=== PATIENT | male | born 1985 | race Caucasian/White ===

== ENCOUNTER 2024-04-10 09:45 | Emergency (ER) | payer OTHER, SELFPAY ==
--- NOTE | ~2024-04-10 | CT_ITS ---
CLINICAL HISTORY: ongoing cough since november CT chest with contrast Comparison: CR - XR CHEST 2V - 04/10/24 10:34 EST Findings: The heart is normal size. The visualized thyroid and mediastinum are unremarkable. There is bilateral gynecomastia. Soft tissues are otherwise unremarkable. There is no consolidation or pleural effusion. There are scattered linear opacities within the bilateral lower lungs. The upper abdomen is unremarkable. The bones are intact. IMPRESSION: Scattered linear opacities within the bilateral lower lungs, compatible with atelectasis. This document has been electronically signed by: Shadia Suazo MD on 04/10/2024 14:20:27
--- NOTE | ~2024-04-10 | XR_ITS ---
CLINICAL HISTORY: chest pain Chest radiographs, 2 views Comparison: None Findings: The cardiomediastinal silhouette is not enlarged. Pulmonary vascularity is unremarkable. Minimal bibasilar airspace opacities and slight blunting of the costophrenic angles. Lungs are otherwise clear. No pneumothorax. IMPRESSION: Minimal bibasilar airspace disease and possible trace bilateral pleural effusions. This document has been electronically signed by: Rojelio Soto DO on 04/10/2024 10:47:52
--- NOTE | 2024-04-10 09:47 | ECG_ITS ---
Test Reason : CHEST PAIN Blood Pressure : */* mmHG Vent. Rate : 72 BPM Atrial Rate : 72 BPM P-R Int : 166 ms QRS Dur : 106 ms QT Int : 376 ms P-R-T Axes : 47 38 -4 degrees QTcB Int : 411 ms Normal sinus rhythm Minimal voltage criteria for LVH, may be normal variant ( [place] product ) Borderline ECG No previous ECGs available Referred By: Generic ED Physician Electronically Signed By: CHRYSTAL GATICA
--- NOTE | 2024-04-10 09:56 | ED_ITS ---
HPI - General Adult General Chief complaint: Chest Pain Stated complaint: Chest Pain Time Seen by Provider: 04/10/24 09:54 Source: patient, RN notes reviewed and old records reviewed Mode of arrival: ambulatory Limitations: no limitations History of Present Illness ED Provider: William VASQUEZ narrative: Patient is a 38-year-old male presenting to the emergency department with complaint of right sided chest pain since yesterday. States pain began suddenly while blowing his nose. Pain is to the right of his sternum. Reports intermittent URI symptoms since November of 2023. Has been treated with several courses of antibiotics. Has had some improvement in between illnesses. Denies recent fevers. Pain worse with blowing nose, coughing, movement. MD complaint: chest pain Onset (ago): day(s) Location: chest Radiation: non-radiation Severity: severe Related Data Previous Rx's ?Medication ?Instructions ?Recorded benzonatate 100 mg capsule 100 mg PO TID PRN cough #20 caps 04/10/24 fluticasone furoate 50 1 inh inhalation DAILY #30 ea 04/10/24 mcg/actuation blister powder for inhalation lidocaine 5 % topical patch 1 patch topical DAILY #15 ea 04/10/24 naproxen 500 mg tablet 500 mg PO BID #30 tabs 04/10/24 prednisone 20 mg tablet See Rx Instructions .Route 04/10/24 .COMPLEX #18 tabs Allergies Allergy/AdvReac Type Severity Reaction Status Date / Time No Known Allergies Allergy Verified 04/10/24 10:03 Review of Systems 2 Review of Systems: as per HPI Yes all other systems are reviewed and are negative Constitutional: Constitutional: Reports as per HPI PMF Social History Social History Smoked in Last 30 Days: Yes Use of substances other than those prescribed or required for medical reasons: No Advance Directives: No Advance Directives Information Provided: Yes Physical Exam ED Vital Signs: Vital Signs - 24 hr 04/10/24 09:58 04/10/24 12:06 04/10/24 15:07 Temperature 98.5 F 98.7 F 98 F Pulse Rate 80 70 67 Respiratory Rate 18 16 19 Blood Pressure 144/85 H 144/65 H 141/61 H Pulse Oximetry 97 96 97 Oxygen Delivery Method Room Air Room Air Room Air 04/10/24 15:34 Temperature 98 F Pulse Rate 67 Respiratory Rate 19 Blood Pressure 141/61 H Pulse Oximetry 97 Oxygen Delivery Method Room Air BMI result Body Mass Index 32.1 Vital signs have been reviewed and appear to be correct. Blood pressure normal. Heart rate normal. Respiratory rate normal. Temperature normal. Oxygen saturation normal. Const General: cooperative, healthy appearing and no acute distress Orientation/consciousness: oriented to person, oriented to place, oriented to time and patient oriented x3 Limitations: no limitations HENMT Head: Yes normocephalic and Yes atraumatic Ears: external ears normal General nose exam: Normal external nose present Face and sinus: Yes face symmetric Mouth: oropharynx normal and moist mucous membranes Throat: Yes posterior oropharynx normal, Yes tonsils normal, Yes uvula midline and No uvular edema Eyes Pupils: Equal, round and reactive pupils present Neck Neck: Yes normal visual inspection and Yes supple Chest Chest palpation & inspection: normal inspection of the chest and no tenderness Resp Effort & Inspection: normal respiratory effort and able to speak in complete sentences Auscultation: clear to auscultation bilaterally Cardio Rate: regular rate Rhythm: regular rhythm Heart sounds: S1 normal heart sound present and S2 normal heart sound present GI Palpation (GI): Soft to palpation and nontender Auscultation: normoactive bowel sounds General: Yes no CVA tenderness Back/Spine/Pelvis Back: no CVA tenderness Skin General skin exam: elasticity normal and turgor normal Neuro General: oriented to person, oriented to place, oriented to time, patient oriented x3, moves all extremities, no focal motor deficits and CN's II-XI intact bilaterally Cranial nerves: Yes Equal, round and reactive pupils present Cognition (Neuro): normal cognition Extrem General: Yes full ROM, Yes no pedal edema and Yes no calf tenderness Psych Mental Status: mental status grossly normal Affect: normal affect Thought process: Normal thought process present Medications Administered Discontinued Medications Generic Name Dose Route Start Last Admin Trade Name Freq PRN Reason Stop Dose Admin Albuterol Sulfate 2 puff 04/10/24 14:48 04/10/24 15:29 Albuterol Sulfate 90 Mcg 8 Gm Inhaler INHALE 04/10/24 14:49 2 puff ONCE ONE Administration Guaifenesin 5 ml 04/10/24 13:05 04/10/24 13:18 Guaifenesin 100 Mg/5 Ml 5 Ml Liquid PO 04/10/24 13:06 5 ml ONCE ONE Administration Iohexol 65 ml 04/10/24 13:40 04/10/24 13:41 Iohexol 350 Mg/Ml 100 Ml Infus..Btl IV 04/10/24 13:41 65 ml ONCE ONE Administration Ketorolac Tromethamine 15 mg 04/10/24 13:05 04/10/24 13:44 Ketorolac Tromethamine 15 Mg/Ml Vial IVPUSH 04/10/24 13:06 15 mg ONCE ONE Administration Morphine Sulfate 2 mg 04/10/24 14:11 04/10/24 14:24 Morphine Sulfate 2 Mg/Ml Cartridge IVPUSH 04/10/24 14:12 2 mg ONCE ONE Administration Protocol Medical Decision Making Medical Decision Making [facility] Narrative: Patient is a 38-year-old male presenting to the emergency department with complaint of right sided chest pain since yesterday. On exam patient is awake, A+Ox3, VS WNL, afebrile, normal neurological exam without focal deficits, physical exam findings as above. Given reported symptoms and physical exam findings, initial differential includes but is not limited to ACS, bronchitis, pneumonia, costochondritis, musculoskeletal pain. Labs unremarkable negative troponin. Strep and viral swabs negative. EKG shows normal sinus rhythm. X- ray chest notable for minimal bibasilar opacities. CT chest shows scattered linear opacities within bilat lower lungs. My interpretation is in agreement with the radiologist's interpretation. Case discussed with attending MD, Dr. Ly, who does not feel imaging represents acute infection, recommends prednisone, fluticasone, albuterol. Discussed with patient that pain is likely due to costochondritis from coughing/sneezing for several months. Follow up with PCP as needed. Return precautions discussed. Patient verbalized understanding of and agreement with plan. Differential Diagnosis Differential Diagnoses: The differential diagnosis associated with the presentation includes As per [facility] Admission/Observation Consideration of admission/observation: Escalation of care including admission/observation considered Patient would have been admitted to the hospital had their work up had any findings where hospital admission was appropriate and their clinical presentation warranted hospital admission. Lab Data [facility] Lab Attestation statement: I reviewed the patient's lab results. As per [facility] 04/10/24 10:15 04/10/24 10:44 Labs: Lab Results 04/10/24 04/10/24 04/10/24 Range/Units 10:15 10:44 14:25 WBC 10.1 (4.8-10.8) X10*3/uL RBC 5.27 (4.60-5.80) X10*6/uL Hgb 15.0 (14.0-18.0) g/dl Hct 46.0 (42.0-52.0) % MCV 87.3 (80.0-98.0) fL MCH 28.5 (27.0-33.0) pg MCHC 32.6 (31.0-36.0) g/dl RDW 14.2 (11.0-16.0) % Plt Count 436 H (160-400) X10*3/uL MPV 9.2 L (9.4-12.4) fL Immature Gran % (Auto) 1.0 H (0.0-0.4) % Neut % (Auto) 72.5 (45-73) % Lymph % (Auto) 13.0 L (20-40) % [place] % (Auto) 11.5 H (2-11) % Eos % (Auto) 1.6 (0-4) % Baso % (Auto) 0.4 (0-2) % Lymph # (Auto) 1.3 (1.2-4.9) X10*3/uL [place] # (Auto) 1.2 (0.1-1.2) X10*3/uL Eos # (Auto) 0.2 (0.0-0.4) X10*3/uL Baso # (Auto) 0.0 (0.0-0.2) X10*3/uL Abs Immat Gran (auto) 0.10 H (0.00-0.03) X10*3/uL Absolute Neuts (auto) 7.3 (2.0-8.3) x10*3/uL Absolute Nucleated RBC 0.000 (0.0-0.012) X10*3/uL Nucleated RBC % (auto) 0.0 (0.0-0.2) /100WBC PT 10.7 L (10.9-12.4) SEC INR 0.9 (0.9-1.1) Sodium 137 (135-145) mmol/L Potassium 4.4 (3.3-5.1) mmol/L Chloride 101 (96-108) mmol/L Carbon Dioxide 29 (22-29) mmol/L Anion Gap 11 L (12-20) BUN 15 (9-16) mg/dL Creatinine 0.89 (0.5-1.4) mg/dL Estim Creat Clear Calc 135.6 Estimated GFR > 60 Random Glucose 107 (60-115) mg/dL Calcium 8.7 (8.4-10.2) mg/dL Total Bilirubin 0.2 (0.0-1.0) mg/dL AST 53 H (5-37) U/L ALT 39 (0-40) U/L Alkaline Phosphatase 55 (39-117) U/L Troponin I High Sens < 2.7 (<3.5-35.0) ng/L Total Protein 7.1 (6.5-8.0) g/dL Albumin 3.6 (3.5-5.0) g/dL Influenza Type A (PCR) NEGATIVE (Negative) Influenza Type B (PCR) NEGATIVE (Negative) RSV RNA Qual (PCR) NEGATIVE (Negative) SARS-CoV-2 RNA (RT-PCR) NEGATIVE (Negative) S. pyogenes GrpA AMARILIS Negative (Negative) Independent Interpretation I performed an independent interpretation of an: EKG (normal sinus rhythm, rate 78bpm, normal [place] interval and QTc), Plain X-Ray and CT Scan Interpretation: X-ray chest notable for minimal bibasilar opacities. CT chest shows scattered linear opacities within bilat lower lungs. Radiology Impression Discussion of test interpretation with radiology: I have reviewed the radiologist's reading. Radiologist Impression: CT chest with contrast Comparison: CR - XR CHEST 2V - 04/10/24 10:34 EST Findings: The heart is normal size. The visualized thyroid and mediastinum are unremarkable. There is bilateral gynecomastia. Soft tissues are otherwise unremarkable. There is no consolidation or pleural effusion. There are scattered linear opacities within the bilateral lower lungs. The upper abdomen is unremarkable. The bones are intact. IMPRESSION: Scattered linear opacities within the bilateral lower lungs, compatible with atelectasis. Chest radiographs, 2 views Comparison: None Findings: The cardiomediastinal silhouette is not enlarged. Pulmonary vascularity is unremarkable. Minimal bibasilar airspace opacities and slight blunting of the costophrenic angles. Lungs are otherwise clear. No pneumothorax. IMPRESSION: Minimal bibasilar airspace disease and possible trace bilateral pleural effusions. External Record Review External record reviewed: Inpatient record, Office record and Outpatient record Prescription Management I considered prescription management with: Pain Medication and Other Discharge Plan Discharge Clinical Impression: Costalchondritis Patient Disposition: Home, Self-Care Instructions: Costochondritis (ED), Thoracic Pain (ED) Additional Instructions: You were evaluated in the emergency department today for chest pain. You are being treated with an albuterol inhaler with spacer, a cough medication called benzonatate (KEEP THIS OUT OF THE REACH OF CHILDREN), a nasal spray called fluticasone, and a course of prednisone which is a steroid. Follow up with your primary care provider this week. Return to the emergency department if you develop worsening pain, difficulty breathing, fever, or any other new or concerning symptoms. Prescriptions: New benzonatate 100 mg capsule 100 mg PO TID PRN (Reason: cough) Qty: 20 0RF fluticasone furoate 50 mcg/actuation blister with device 1 inh inhalation DAILY Qty: 30 0RF prednisone 20 mg tablet See Rx Instructions .ROUTE .COMPLEX Qty: 18 0RF Rx Instructions: 60mg (3 tabs) x 3 days then 40mg (2 tabs) x 3 days then 20mg (1 tab) x 3 days naproxen 500 mg tablet 500 mg PO BID Qty: 30 0RF lidocaine 5 % adhesive patch,medicated 1 patch topical DAILY Qty: 15 0RF Rx Instructions: leave on most painful area for up to 12 hrs Interventions: ED Discharge Assessment Last Done: 04/10/24 15:34 Discharge Date/Time: 04/10/24 15:37 Print Language: Arabic
[2024-04-10 09:58] VITALS: BP 144/85; PULSE 80; RESP 18; TEMP 36.9; O2SAT 97; BMI 32.1
--- OUTSIDE RECORDS SUMMARY | 2024-04-10 10:11 | XMS_ITS | Clinical Summary ---
Author Organization [facility] Address [phone] Count includes the [facility] [place] [address] Care Team Providers Care Veterinary Epidemiologist Name Role Phone Nia Wheeler MD Primary Care Provider Unavailabl e Allergies No known active allergies Medications No known medications Active Problems No known active problems Immunizations Name Administration Dates Next Due Tdap 03/12/2022 Social History Tobacco Use Types Packs/Day Years Used Date Smoking Tobacco: Never Assessed Education Answer Date Recorded Are you interested in more education? Not on kari e 06/19/2022 Are you concerned about learning? Not on file 06/19/2022 No 06/19/2022 No 06/19/2022 Digital Access Answer Date Recorded No 07/21/2022 No 07/21/2022 Reliable internet access at home? Not on file 07/21/2022 Device with a working camera? Not on file Sex and Gender Information Value Date Recorded Sex Assigned at Not on file Gender Identity Not on file Sexual Orientation Not on file Last Filed Vital Signs Vital Sign Reading Time Taken Comments Blood Pressure 132/78 03/12/2022 2:56 PM EST Pulse 64 03/12/2022 2:56 PM EST Temperature 36.1 ??C (97 ??F) 03/12/2022 2:56 PM EST Respiratory Rate 16 03/12/2022 2:56 PM EST Oxygen Saturation 96% 03/12/2022 2:56 PM EST Inhaled Oxygen Concentration - - Weight 102.1 kg (225 lb) 03/12/2022 2:56 PM EST Height 177.8 cm (5' 10 ) 03/12/2022 2:56 PM EST Body Mass Index 32.28 03/12/2022 2:56 PM EST Plan of Treatment Health Maintenance Due Date Last Done Comments LIPID PANEL 1986 DEPRESSION SCREENING 1998 SMOKING Hx and SMOKELESS TOB ACCO SCREENING 12/16/1999 HEPATITIS B SCREENING 2004 HEPATITIS C SCREENING 2004 HIV ONE-TIME SCREENING (18-6 5 YEARS) 2004 HEPATITIS B VACCINES (1 of 3 - 19+ 3-dose series) 2005 SCREENING FOR DIABETES 2021 INFLUENZA VACCINE (#1) 2023 03/05/2019 COVID-19 VACCINE (1 - 2023-2 5 season) 2023 Adult Td,Tdap Booster 03/12/2032 03/12/2022 HEPATITIS A VACCINES Aged Out No long er eligible based on patient's age to complete this topic HIB VACCINES Aged Out No longer eligi ble based on patient's age to complete this topic MENINGOCOCCAL VACCINES (ACWY) Aged Out No longer eligible based on patient's age to complete this topic PNEUMOCOCCAL VACCINES (0-49 years) Aged Out No longer eligible based on patient's age to complete this topic Medical Devices Not on file [place] Sohail Orozco Personal/Family Self 1985 [address] [place] Sohail Orozco Personal/Family Self 1985 [address] [place] Sohail Orozco Personal/Family Self 1985 [address] [place], [place] Ernesto Sohail Personal/Family Self 1985 [address] [place], [place] [address]Criss Orozco, Sohail Personal/Family Self 1985 [address] [place] [place] [address]Criss Orozco, Sohail Personal/Family Self 1985 [address] [place] [address] Ernesto, Sohail Personal/Family Self 1985 [address] [place] [address]Criss Orozco, Sohail Personal/Family Self 1985 [address] [place] [address]Criss Orozco, Sohail Workers Comp Self 1985 [place] [address] Care Teams Veterinary Epidemiologist Relationship Specialty Start Date End Date Nia Wheeler MD PCP - General Family Medicine 11/01/19 Additional Source Comments The information contained in this document represents components of the legal health record. It is not the complete legal health record.[facility]
--- OUTSIDE RECORDS SUMMARY | 2024-04-10 10:11 | XMS_ITS ---
Author Organization [facility] Address [address] [place] [address] Care Team Providers Care Metal Turner Name Role Phone Macario Pompa Primary Care Provider [phone] REASON FOR VISIT (IN OFFICE), Sick Visit MEDICATIONS Medication SIG (Take, Route, Frequency, Duration) Notes Start Date End Date Status Pantoprazole Sodium 40 MG 1 tablet Orall y Once a day for 30 days Active Flonase 50 MCG/ACT 1 spray in each nost ril Nasally Once a day for 90 days 01/14/2024 Active tiZANidine HCl 4 MG 1 tablet at bedtime as needed Orally Once a day for 14 days Active Lidoderm 5 % 1 patch remove after 12 hours Externally Once a day for 14 days Active oxyCODONE HCl 10 MG 1 tablet as needed O rally every 8 hrs partial fill upon request for 14 days 03/15/2024 Active SOCIAL HISTORY Tobacco Use: Social History Observation Description Date Details (start date - stop date) Never Smoker NA - NA Sex Assigned At : Social History Observation Description Sex Assigned At Unknown Tobacco Use/Smoking Question Answer Notes Are you a nonsmoker VITAL SIGNS Height 70 in 03/15/2024 Weight 234.4 lbs 03/15/2024 BMI 33.63 kg/m2 03/15/2024 Blood pressure systolic 120 mm Hg 03/15/19 25 Blood pressure diastolic 72 mm Hg 025 Heart Rate 74 /min 03/15/2024 Encounters Encounter Location Date Provider Diagnosis [facility] [address] [place] [address] 03/15/2024 Macario Pompa Sciatica of left komal e M54.32 and Muscle spasm M62.838 ASSESSMENTS Encounter Date Diagnosis Assessment Notes Treatment Notes Treatment Clinical Notes 03/15/2024 Sciatica of left side (ICD-10 - M54.32) 03/15/2024 Muscle spasm (ICD-10 - M62.838) 03/15/2024 Other This chart has been transcribed by a computerized dictation system. There are likely to be multiple access assoc inaccuracies despite chart review. This chart has been transcribed by a computerized dictation system. There are likely to be multiple access assoc inaccuracies despite chart review. PLAN OF TREATMENT Medication Medication Name Sig Start Date Stop Date Notes tiZANidine HCl 4 MG 1 tablet at bedtime as needed Orally Once a day for 14 days PredniSONE Taper * 20 MG 3 tablets for 3 days, then 2 tablets for 3 days, then 1 tablet for 5 days Orally daily for 11 days Lidoderm 5 % 1 patch remove after 12 hours Externally Once a day for 14 days oxyCODONE HCl 10 MG 1 tablet as needed O rally every 8 hrs partial fill upon request for 14 days 03/15/2024 Treatment Notes Assessment Notes Other This chart has been transcribed by a computerized dictation system. There are likely to be multiple access assoc inaccuracies despite chart review. This chart has been transcribed by a computerized dictation system. There are likely to be multiple access assoc inaccuracies despite chart review. Next Appt Details Follow Up: as scheduled, Geovanna son: Provider Name:Macario lópez, 04/12/2024 02:15:00 PM, [address] [place] [address], [phone], Progress Notes * Examination Category Sub-Category Detail Notes General Examination GENERAL APPEARANCE: in no ac sourav distress, well developed, well nourished HEAD: normocephalic, atrau matic EYES: pupils equal, round, reactive to light and accommodation THROAT: clear, no erythema, uvula midline, no exudate NECK/THYROID: neck supple, no thyr omegaly, trachea midline, no carotid bruit HEART: no murmurs, regular rate and rhythm, S1, S2 normal LUNGS: clear to auscultatio n bilaterally ABDOMEN: soft, nontender, non distended, no organomegaly , bowel sounds present NEUROLOGIC: Lower extremity DTRs 2+ bilateral, SLR negative bilateral, gait normal SKIN: no suspicious lesion s, warm and dry EXTREMITIES: no clubbing, cyanosi s, or edema PERIPHERAL PULSES: normal, 2+ throughou t MUSCULOSKELETAL: Palpation of the lum bosacral spine no point tenderness, paravertebral spasm present LYMPH NODES: no cervical, axillar y, supraclavicular or inguinal adenopathy PSYCH: cognitive function i ntact, mood/affect full range ORAL CAVITY: mucosa moist, no les ions, palate normal, tongue in midline, well papillated
--- OUTSIDE RECORDS SUMMARY | 2024-04-10 10:11 | XMS_ITS ---
Author Organization [facility] Address [address] [place] [address] Care Team Providers Care Actuarial Intern Name Role Phone BradymaribelMacario Primary Care Provider REASON FOR VISIT (IN OFFICE), Sick Visit MEDICATIONS Medication SIG (Take, Route, Frequency, Duration) Notes Start Date End Date Status Mucinex 600 MG 1 tablet as needed O rally every 12 hrs for 10 days 03/28/2024 Active Azithromycin 250 MG 2 tablets on the , then 1 tablet daily for 4 days Orally Once a day for 5 day(s) 03/28/2024 Active tiZANidine HCl 4 MG 1 tablet at bedtime as needed Orally Once a day for 14 days Active oxyCODONE HCl 10 MG 1 tablet as needed O rally every 8 hrs partial fill upon request for 14 days 03/28/2024 Active Pantoprazole Sodium 40 MG 1 tablet Orall y Once a day for 30 days Active Lidoderm 5 % 1 patch remove after 12 hours Externally Once a day for 14 days Active Flonase 50 MCG/ACT 1 spray in each nost ril Nasally Once a day for 90 days 01/14/2024 Active SOCIAL HISTORY Tobacco Use: Social History Observation Description Date Details (start date - stop date) Never Smoker NA - NA Sex Assigned At : Social History Observation Description Sex Assigned At Unknown Tobacco Use/Smoking Question Answer Notes Are you a nonsmoker VITAL SIGNS Height 70 in 03/28/2024 Weight 228.4 lbs 03/28/2024 BMI 32.77 kg/m2 03/28/2024 Blood pressure systolic 140 mm Hg 03/28/19 25 Blood pressure diastolic 90 mm Hg 025 Heart Rate 92 /min 03/28/2024 Encounters Encounter Location Date Provider Diagnosis [facility] [address] [place] [address] 03/28/2024 Macario Pompa Sciatica of left komal e M54.32 ; Muscle spasm M62.838 ; Acute URI J06.9 and Productive cough R05.8 ASSESSMENTS Encounter Date Diagnosis Assessment Notes Treatment Notes Treatment Clinical Notes 03/28/2024 Sciatica of left side (ICD-10 - M54.32) In accordance with Chapter 52 - Acts of 2016, '' An Act Relative to Substance Use Treatment, Education and Prevention, the risks associated with opioid and opioid-like substances has been discussed with the patient. The patient clearly understands that the medication is to control chronic pain and to improve quality of life and functionality. Patient uses the medication judiciously as prescribed and displays no aberrant behavior. The patient has been made aware of other non-opioid treatment options including medications and interventional procedures. The patient was given the option to fill the prescription in lesser amount. [place] PAT verified. 03/28/2024 Muscle spasm (ICD-10 - M62.838) 03/28/2024 Acute URI (ICD-10 - J06.9) 03/28/2024 Productive cough (ICD-10 - R05.8) 03/28/2024 Other This chart has been transcribed by a computerized dictation system. There are likely to be multiple theatre manager inaccuracies despite chart review. PLAN OF TREATMENT Medication Medication Name Sig Start Date Stop Date Notes Mucinex 600 MG 1 tablet as needed O rally every 12 hrs for 10 days 03/28/2024 Azithromycin 250 MG 2 tablets on the , then 1 tablet daily for 4 days Orally Once a day for 5 day(s) 03/28/2024 tiZANidine HCl 4 MG 1 tablet at bedtime as needed Orally Once a day for 14 days oxyCODONE HCl 10 MG 1 tablet as needed O rally every 8 hrs partial fill upon request for 14 days 03/28/2024 Lidoderm 5 % 1 patch remove after 12 hours Externally Once a day for 14 days Treatment Notes Assessment Notes Sciatica of left side In accordance with Chapter 52 - Acts of 2016, '' An Act Relative to Substance Use Treatment, Education and Prevention, the risks associated with opioid and opioid-like substances has been discussed with the patient. The patient clearly understands that the medication is to control chronic pain and to improve quality of life and functionality. Patient uses the medication judiciously as prescribed and displays no aberrant behavior. The patient has been made aware of other non-opioid treatment options including medications and interventional procedures. The patient was given the option to fill the prescription in lesser amount. [place] PAT verified. Other This chart has been transcribed by a computerized dictation system. There are likely to be multiple theatre manager inaccuracies despite chart review. Next Appt Details Follow Up: as scheduled, Geovanna son: Provider Name:Macario lópez, 04/12/2024 02:15:00 PM, [address] [place] [address], [phone], Progress Notes * Examination Category Sub-Category Detail Notes General Examination GENERAL APPEARANCE: in no ac [place] distress, well developed, well nourished HEAD: normocephalic, [...]
--- NOTE | 2024-04-10 10:12 | ECG_ITS ---
Test Reason : PAIN/REPEAT Blood Pressure : */* mmHG Vent. Rate : 78 BPM Atrial Rate : 78 BPM P-R Int : 162 ms QRS Dur : 108 ms QT Int : 364 ms P-R-T Axes : 52 55 1 degrees QTcB Int : 414 ms Normal sinus rhythm Normal ECG When compared with ECG of 10-Apr-2024 09:54, No significant change was found Referred By: Waldo Nieves Electronically Signed By: CHRYSTAL GATICA
[2024-04-10 10:20] LABS: MANUAL DIFF FLAG NO
[2024-04-10 10:23] LABS: Basophils Percent Auto 0.4 % (0-2); Eosinophils Absolute Auto 0.2 X10*3/uL (0.0-0.4); Eosinophils Percent Auto 1.6 % (0-4); Lymphocytes Absolute Auto 1.3 X10*3/uL (1.2-4.9); Mean Corpuscular HGB Conc 32.6 g/dl (31.0-36.0); Mean Corpuscular Hemoglobin 28.5 pg (27.0-33.0); Mean Corpuscular Volume 87.3 fL (80.0-98.0); Mean Platelet Volume 9.2 fL (9.4-12.4); Monocytes Absolute Auto 1.2 X10*3/uL (0.1-1.2); Monocytes Percent Auto 11.5 % (2-11); Neutrophils Absolute Auto 7.3 x10*3/uL (2.0-8.3); Neutrophils Percent Auto 72.5 % (45-73); Platelet Count 436 X10*3/uL (160-400); Red Blood Count 5.27 X10*6/uL (4.60-5.80); Red Cell Distribution Width 14.2 % (11.0-16.0); White Blood Count 10.1 X10*3/uL (4.8-10.8)
[2024-04-10 10:29] LABS: INTERNATIONAL NORM RATIO 0.9 (0.9-1.1); Prothrombin Time 10.7 SEC (10.9-12.4)
[2024-04-10 11:02] LABS: Influenza A PCR NEGATIVE (Negative); Influenza B PCR NEGATIVE (Negative); Resp Syncy Virus RNA Qual PCR NEGATIVE (Negative); SARS COV2 PCR INHOUSE NEGATIVE (Negative)
[2024-04-10 11:13] LABS: Alanine Aminotransferase 39 U/L (0-40); Albumin Level 3.6 g/dL (3.5-5.0); Alkaline Phosphatase 55 U/L (39-117); Anion Gap 11 (12-20); Aspartate Amino Transferase 53 U/L (5-37); Bilirubin Total 0.2 mg/dL (0.0-1.0); Blood Urea Nitrogen 15 mg/dL (9-16); Calcium 8.7 mg/dL (8.4-10.2); Carbon Dioxide 29 mmol/L (22-29); Chloride 101 mmol/L (96-108); Creatinine Clr Calc Pharmacy 135.6; Estimated Glomerular Filt Rate > 60; Glucose Random 107 mg/dL (60-115); Potassium 4.4 mmol/L (3.3-5.1); Sodium 137 mmol/L (135-145); Total Protein 7.1 g/dL (6.5-8.0)
[2024-04-10 11:18] LABS: Troponin-I High Sensitivity < 2.7 ng/L (<3.5-35.0)
[2024-04-10 12:06] VITALS: BP 144/65; PULSE 70; RESP 16; TEMP 37.1; O2SAT 96
[2024-04-10] MEDS: guaiFENesin 100 MG/5 ML 5 ML LIQUID PO (13:18)
[2024-04-10] MEDS: iohexoL 350 MG/ML 100 ML INFUS..BTL 65 ML IV (13:41)
[2024-04-10] MEDS: Ketorolac Tromethamine 15 MG/ML VIAL IVPUSH (13:44)
[2024-04-10] MEDS: Morphine Sulfate 2 MG/ML CARTRIDGE IVPUSH (14:24)
[2024-04-10 14:40] LABS: IDNOW Serial# 08D9AD1C; Strep A Nucleic Acid Negative (Negative)
[2024-04-10 15:07] VITALS: BP 141/61; PULSE 67; RESP 19; TEMP 36.6; O2SAT 97
[2024-04-10] MEDS: Albuterol Sulfate 90 MCG 8 GM INHALER 2 PUFF INHALE (15:29)
[2024-04-10 15:34] VITALS: BP 141/61; PULSE 67; RESP 19; TEMP 36.6; O2SAT 97
== END 2024-04-10 15:37 | disposition home or self-care (01) ==
PROVIDERS: Registered Nurse Emergency; Emergency Provider Emergency Medicine; PCP Internal Medicine
DX: M94.0 Chondrocostal junction syndrome [Tietze] (principal); R07.89 Other chest pain; R05.9 Cough, unspecified; Z03.818 Encounter for observation for suspected exposure to other biological agents ruled out; Z79.899 Other long term (current) drug therapy
CPT/HCPCS: 0241U; 71046; 71260; 80053; 84484; 85025; 85610; 87651; 93005; 96374; 96375; 99285; J1885; J2270; Q9967

== ENCOUNTER → 2024-04-10 09:47 | Outpatient (BNV) | payer OTHER, SELFPAY | PROVIDERS: Emergency Provider Emergency Medicine; PCP Internal Medicine; Visit Provider Internal Medicine | DX: R07.9 Chest pain, unspecified (principal) | CPT/HCPCS: 93010 ==

== ENCOUNTER → 2024-04-10 09:54 | Outpatient (BNV) | payer OTHER, SELFPAY | PROVIDERS: PCP Internal Medicine; Visit Provider Radiology Diagnostic Radiology | DX: J98.11 Atelectasis (principal); R91.8 Other nonspecific abnormal finding of lung field; R07.9 Chest pain, unspecified | CPT/HCPCS: 71046; 71260 ==